=== PATIENT | female | born 1990 | race Caucasian/White ===

== ENCOUNTER → 2020-07-17 | Outpatient (CLI) | payer MEDICAID | END | disposition home or self-care (01) | LOC: STAR 14:58 | PROVIDERS: ATTEND Student in an Organized Health Care Education/Training Program | DX: Z20.822 Contact with and (suspected) exposure to COVID-19 (principal); K80.20 Calculus of gallbladder without cholecystitis without obstruction | CPT/HCPCS: U0003; U0005 ==

== ENCOUNTER 2020-07-23 06:35 | Day surgery (SDC) | payer MEDICAID ==
[~2020-07-23] VITALS: Ht 162.6 cm; Wt 72.7 kg
[2020-07-23 06:35] VITALS: BP 103/70
[~2020-07-23 06:35] MED LIST: LACTATED RINGERS 1,000 ML IV SCH
[2020-07-23] MEDS ORDERED: FENTANYL PF 250 MCG/5ML ONE (06:38)
[2020-07-23] MEDS ORDERED: MIDAZOLAM 1 MG/ML, 2ML ONE (06:38)
[2020-07-23] MEDS ORDERED: KETOROLAC 30 MG/1 ML ONE (06:39)
[2020-07-23] MEDS ORDERED: CEFOTETAN 2 GM ONE (06:40)
[2020-07-23] MEDS ORDERED: DEXAMETHASONE 4 MG/ML, 1ML ONE (06:41)
[2020-07-23] MEDS ORDERED: ROCURONIUM 10MG/ML,5ML ONE (06:41)
[2020-07-23] MEDS ORDERED: PROPOFOL 10 MG/ML, 20ML ONE (06:41)
[2020-07-23] MEDS ORDERED: ONDANSETRON 2MG/ML, 2ML ONE (06:41)
[2020-07-23] MEDS ORDERED: NEOSTIGMINE 1 MG/ML, 10ML ONE (06:41)
[2020-07-23] MEDS ORDERED: GLYCOPYRROLATE 0.2MG/1ML, 5ML ONE (06:41)
[2020-07-23] MEDS ORDERED: BUPIVACAINE/PF 0.5% ONE (06:44)
[2020-07-23] MEDS ORDERED: EPINEPHRINE 1 MG/ML, 1ML ONE (06:44)
[2020-07-23] MEDS ORDERED: hydrALAzine 20 MG/ML, 1ML IV PRN (07:00)
[2020-07-23] MEDS ORDERED: ACETAMINOPHEN 325 MG TABLET PO PRN (07:00)
[2020-07-23] MEDS ORDERED: HALOPERIDOL 5 MG/ML IV PRN (07:00)
[2020-07-23] MEDS ORDERED: morphine SULFATE 10 MG/ML, 1ML IVPush PRN (07:00)
[2020-07-23] MEDS ORDERED: FENTANYL PF 100 MCG/2ML IV PRN (07:00)
[2020-07-23] MEDS ORDERED: CHLORHEXIDINE 15 ML UDC PO ONE (07:00)
[2020-07-23] MEDS ORDERED: OXYcodone 5 MG/5 ML ORAL.SOL UDC PO PRN (07:00)
[2020-07-23] MEDS ORDERED: LABETALOL 5MG/ML, 20ML IV PRN (07:00)
[2020-07-23] MEDS ORDERED: PROMETHAZINE 25 MG/ML, 1ML IVPush PRN (07:00)
[2020-07-23] MEDS ORDERED: MEPERIDINE/PF 25MG/0.5ML IVPush PRN (07:00)
[2020-07-23] MEDS ORDERED: HYDROmorphone 1 MG/ML, 1ML INJ IVPush PRN (07:00)
[2020-07-23] MEDS ORDERED: DOCU100C33 PO (08:19)
[2020-07-23] MEDS ORDERED: OXYC5TAB2 PO (08:19)
[2020-07-23] MEDS ORDERED: ACET325T26 PO (08:19)
[2020-07-23] MEDS ORDERED: IBUP-1222 PO (08:19)
[2020-07-23] MEDS ORDERED: ACETAMINOPHEN 650 MG/20.3 ML UDC ONE (08:24)
[2020-07-23] MEDS ORDERED: MEPERIDINE/PF 25MG/ML,1ML ONE (08:25)
== END 2020-07-23 10:40 | disposition home or self-care (01) ==
LOC: OUT 06:35
PROVIDERS: ATTEND Student in an Organized Health Care Education/Training Program
DX: K80.10 Calculus of gallbladder with chronic cholecystitis without obstruction (principal)
CPT/HCPCS: 47562; 81025; 88304; J0171; J1100; J1885; J2175; J2250; J2405; J2704; J2710; J3010; J7120